=== PATIENT | female | born 1970 | race Caucasian/White ===

== ENCOUNTER 2020-03-19 10:49 | Emergency (ER) | payer BC ==
[~2020-03-19] VITALS: Ht 162.6 cm; Wt 95.3 kg
[2020-03-19 11:43] LABS: ABSOLUTE BASOPHILS 0.1 thou/uL (0.0-0.2); ABSOLUTE EOSINOPHILS 0.1 thou/uL (0.0-0.7); ABSOLUTE LYMPHOCYTES 2.3 thou/uL (0.8-5.3); ABSOLUTE MONOCYTES 0.7 thou/uL (0.0-1.2); ABSOLUTE NEUTROPHILS 8.3 thou/uL (1.6-8.1); BASOPHILS 1.1 %; EOSINOPHILS 0.7 %; LYMPHOCYTES 20.1 %; MCH 29.8 pg (26.0-34.0); MCHC 34.1 g/dL (28.0-37.0); MCV 87.5 fL (80.0-100.0); MONOCYTES 5.7 %; MPV 7.8 fl. (7.2-11.1); NUCLEATED RBCS 0 /100WBC; PLATELET COUNT* 492 thou/uL (150-400); POLYS 72.4 %; RBC 5.37 mil/uL (4.20-5.00); RDW-CV 13.9 % (10.5-14.5); WBC 11.4 thou/uL (4.0-11.0)
[2020-03-19 11:43] LABS: URINE BILIRUBIN NEGATIVE (Negative); URINE BLOOD NEGATIVE (Negative); URINE CLARITY CLEAR; URINE COLOR YELLOW; URINE GLUCOSE-RANDOM NEGATIVE (Negative); URINE KETONES NEGATIVE (Negative); URINE LEUKOCYTES-REFLEX NEGATIVE (Negative); URINE NITRITE-REFLEX NEGATIVE (Negative); URINE PROTEIN NEGATIVE (Negative); URINE UROBILINOGEN 0.2 E.U./dl (0.2-1.0)
[2020-03-19 11:55] LABS: CALCIUM 9.1 mg/dL (8.5-10.1); CREATININE 1.1 mg/dL (0.6-1.3)
[2020-03-19 12:00] LABS: TOTAL BILIRUBIN 0.3 mg/dL (<0.1-1.0); TOTAL PROTEIN 8.1 g/dL (6.4-8.2)
[2020-03-19 13:41] VITALS: BP 119/81
--- NOTE | 2020-03-19 16:51 | EKG ---
[place] [address] ELECTROCARDIOGRAM REPORT Name: FERNANDO OCHOA Room: [facility]#: [id number] Admission: 03/19/20 Attend Phys: Discharge: 03/19/20 Date of : 66 Date of Service: 03/19/20 1057 Report #: [id number] THIS REPORT FOR: //name// [facility] ED Test Date: 2020-03-19 Test Time: 10:57:27 Pat Name: FERNANDO PRITCHETTRORY Department: Room: Gender: F Bobbin Disker: JEANMARIE : 1970 Requested By: Antonia Linda Order Number: [id number] MD: Ramon Nicole Measurements Intervals [place] Rate: 96 P: 55 [place]: 136 QRS: 36 QRSD: 87 T: 20 QT: 320 QTc: 405 Interpretive Statements Sinus rhythm Low voltage, extremity and precordial leads Baseline wander in lead(s) III,aVF No previous ECG available for comparison Electronically Signed On 03-19-2020 16:50:55 CDT by Ramon Nicole [email or web address] <ELECTRONICALLY SIGNED> By: Ramon Nicole MD, [facility] 03/19/20 1650 1057 1057 Ramon Nicole MD, [facility] /EPI
== END 2020-03-19 13:44 | disposition home or self-care (01) ==
LOC: M.ERS 10:49
PROVIDERS: Personal Emergency Response Attendant
DX: R42 Dizziness and giddiness (principal)

== ENCOUNTER → 2021-03-01 | Outpatient (CLI) | payer BC | LOC: M.RAD 14:30 | PROVIDERS: ATTEND Nurse Practitioner Family | DX: Z12.31 Encounter for screening mammogram for malignant neoplasm of breast (principal); N64.89 Other specified disorders of breast ==